=== PATIENT | female | born 1985 | race Caucasian/White ===

== ENCOUNTER 2018-02-18 17:01 | Emergency (ER) | payer OTHER ==
[~2018-02-18] VITALS: Ht 167.6 cm; Wt 70.5 kg
[2018-02-18 17:24] LABS: APPEARANCE CLEAR ((CLEAR)); BILIRUBIN NEGATIVE; BLOOD NEGATIVE; COLOR STRAW ((YELLOW)); GLUCOSE (STRIP) NEGATIVE; KETONES NEGATIVE; LEUKOCYTES NEGATIVE; NITRITE NEGATIVE; PROTEIN (STRIP) NEGATIVE; SPECIFIC GRAVITY 1.009 (1.000-1.030); UCUL ADDED? NO; UROBILINOGEN 0.2 MG/DL (0.2-1.0)
[2018-02-18] MEDS ORDERED: SKELAXIN800 MG PO (17:40)
[2018-02-18] MEDS ORDERED: TRAMADOL HCL50 MG PO (17:40)
[2018-02-18] MEDS ORDERED: MOTRIN600 MG PO (17:40)
[2018-02-18 17:54] VITALS: BP 113/67
== END 2018-02-18 17:56 | disposition home or self-care (01) ==
LOC: EME 17:01
PROVIDERS: Physician Assistant
DX: M54.5 Low back pain (principal); Z98.890 Other specified postprocedural states
CPT/HCPCS: 81003; 99281; 99283